=== PATIENT | male | born 1950 ===

== ENCOUNTER 2017-05-23 12:15 | Inpatient (IN) | payer OTHER ==
[~2017-05-23] VITALS: Ht 165.1 cm; Wt 88.6 kg
[2017-05-23 12:56] LABS: CALCIUM 8.4 mg/dL (8.5-10.1); CARBON DIOXIDE 29.9 mmol/L (21-32); CHLORIDE SERUM 106 mmol/L (98-107); CREATININE SERUM 0.9 mg/dL (0.7-1.3); GFR1 > 60 mL/min; GLUCOSE SERUM 124 mg/dL (74-106); SODIUM SERUM 143 mmol/L (136-145)
[2017-05-23 13:02] LABS: ALBUMIN 3.5 g/dL (3.4-5.0); ALKALINE PHOSPHATASE 67 U/L (46-116); ALT/SGPT 28 U/L (16-63); AST/SGOT 21 U/L (15-37); BILIRUBIN TOTAL 0.65 mg/dL (0.20-1.00); TOTAL PROTEIN, SERUM 7.4 g/dL (6.4-8.2)
[2017-05-23 13:09] LABS: PLATELET COUNT 204 x10^3mcL (130-400); RED CELL DISTRIBUTION WIDTH 12.9 % (11.5-14.5)
[2017-05-23 13:10] LABS: BASOPHIL % 0 % (0-2)
[2017-05-23 15:19] LABS: CHOLESTEROL/HDL RATIO 3.5; MAGNESIUM 1.9 mg/dL (1.8-2.4); PHOSPHOROUS 2.3 mg/dL (2.5-4.9)
[2017-05-23 15:34] LABS: FREE T4 0.81 ng/dL (0.76-1.46); FREE THYROXINE INDEX 1.7 ug/dL (1.4-4.5); T4(THYROXINE) 5.8 ug/dL (4.7-13.3)
[2017-05-23 15:56] LABS: T3 TOTAL 0.98 ng/mL
[2017-05-23 16:38] VITALS: BP 165/77
[2017-05-23 21:39] LABS: microscopic required? NO
[2017-05-23 21:51] LABS: urine erythrocyte NEGATIVE (NEGATIVE)
[2017-05-23 21:55] VITALS: BP 142/84
[2017-05-23 22:56] VITALS: BP 126/79
[2017-05-24 05:43] VITALS: BP 146/87
[2017-05-24 06:45] LABS: BASOPHIL % 0.3 % (0-2); PLATELET COUNT 172 x10^3mcL (130-400); RED CELL DISTRIBUTION WIDTH 12.3 % (11.5-14.5)
[2017-05-24 07:37] LABS: CARBON DIOXIDE 26.2 mmol/L (21-32); CHLORIDE SERUM 107 mmol/L (98-107); GLUCOSE SERUM 94 mg/dL (74-106); POTASSIUM SERUM 3.7 mmol/L (3.5-5.1); SODIUM SERUM 142 mmol/L (136-145)
[2017-05-24 07:38] LABS: CALCIUM 7.9 mg/dL (8.5-10.1); CREATININE SERUM 0.7 mg/dL (0.7-1.3); GFR1 > 60 mL/min; MAGNESIUM 1.8 mg/dL (1.8-2.4); PHOSPHOROUS 2.7 mg/dL (2.5-4.9)
[2017-05-24 08:04] VITALS: Ht 165.1 cm; Wt 88.6 kg
[2017-05-24 08:40] VITALS: BP 114/58
[2017-05-24 13:20] VITALS: BP 143/88
[2017-05-24] MEDS ORDERED: METOPROLOL TART25 M1 PO (13:27)
[2017-05-24] MEDS ORDERED: ZES5 PO (13:28)
[2017-05-24] MEDS ORDERED: METHOCARBAMOL500 MG PO (13:29)
[2017-05-24] MEDS ORDERED: GOOD SENSE OMEP20 MG PO (13:30)
[2017-05-24] MEDS ORDERED: IBUPROFEN800 MG PO (13:30)
[2017-05-24 13:57] VITALS: BP 143/88
== END 2017-05-24 14:40 | disposition home or self-care (01) | DRG 206 ==
LOC: ED 12:15 → DU 13:57
PROVIDERS: Emergency Medicine; Family Medicine
DX: M94.0 Chondrocostal junction syndrome [Tietze] (principal); M62.838 Other muscle spasm; I10 Essential (primary) hypertension; E78.5 Hyperlipidemia, unspecified; E83.39 Other disorders of phosphorus metabolism; I77.89 Other specified disorders of arteries and arterioles; E83.51 Hypocalcemia; Z90.49 Acquired absence of other specified parts of digestive tract
CPT/HCPCS: 83880; 84439; J1885; J3010; J7030